=== PATIENT | male | born 1985 | race Caucasian/White ===

== ENCOUNTER 2021-04-22 14:08 | Emergency (ER) | payer MEDICAID ==
[~2021-04-22] VITALS: Ht 154.9 cm; Wt 74.8 kg
[2021-04-22 14:16] VITALS: BP 156/96
[2021-04-22] MEDS ORDERED: LIDOCAINE 1% INJ 50 ML MDV IJ ONE (14:22)
[2021-04-22] MEDS ORDERED: TDAP [DIPH/PERTUSSIS/TET] 0.5 ML VIAL IM ONE ×2 (14:27→14:30)
[2021-04-22] MEDS ORDERED: CEPH500C2 PO (15:58)
[2021-04-22] MEDS ORDERED: TRAM50TA2 PO (15:58)
[2021-04-22] MEDS ORDERED: CEPHALEXIN MONOHYDRATE 500 MG CAPSULE PO ONE ×2 (16:00→16:03)
--- NOTE | 2021-04-22 16:16 | NUR ---
[facility] REPAIRED BY LUDWIN BRUNO
--- NOTE | 2021-04-22 16:20 | NUR ---
PENDING XRAY RESULT, CALLED [facility] TWICE TO FOLLOW UP WITH THE RESULT
--- NOTE | 2021-04-22 16:34 | NUR ---
Patient discharged to home in stable condition. Written and verbal after care instructions given. Patient verbalizes understanding of instruction.
== END 2021-04-22 16:42 | disposition home or self-care (01) ==
LOC: ER 14:08
DX: S61.210A Laceration without foreign body of right index finger without damage to nail, initial encounter (principal); W26.8XXA Contact with other sharp object(s), not elsewhere classified, initial encounter; Y93.89 Activity, other specified; Y92.89 Other specified places as the place of occurrence of the external cause; Y99.8 Other external cause status
CPT/HCPCS: 12002; 73130; 90471; 90715; 99283; A6403; J3490